=== PATIENT | male | born 2000 | race Hispanic/Latino ===

== ENCOUNTER 2023-08-23 19:33 | Emergency (ER) | payer BC, SELFPAY ==
[2023-08-23 19:35] VITALS: BP 110/59; PULSE 118; RESP 16; TEMP 36.7; O2SAT 91
--- NOTE | 2023-08-23 20:08 | ECG_ITS ---
Measurements Intervals [place] Rate: 120 P: 56 SC: 135 QRS: 117 QRSD: 138 T: -4 QT: 330 QTc: 468 Interpretive Statements SINUS TACHYCARDIA RIGHT BUNDLE BRANCH BLOCK LEFT POSTERIOR FASCICULAR BLOCK ABNORMAL ECG NO PREVIOUS ECG AVAILABLE FOR COMPARISON Electronically Signed On 08-23-2023 20:32:32 CDT by Giovanni Noriega D.O.
[2023-08-23 20:15] VITALS: BP 123/60; PULSE 118; RESP 18; TEMP 36.9; O2SAT 98
[2023-08-23 20:17] LABS: Hematocrit 51.3 % (42.0-52.0); Hemoglobin 17.2 g/dL (14.0-18.0); Mean Corpuscular HGB Conc 33.5 g/dl (32-36); Mean Corpuscular Hemoglobin 29.6 pg (26-34); Mean Corpuscular Volume 88.1 fl (80-100); Mean Platelet Volume 9.3 fl (7.4-10.4); Platelet Count Result 521 k/mm3 (150-375); Red Blood Count 5.82 M/mm3 (4.6-6.20); Red Cell Distribution Width 12.7 % (11.5-14.5); White Blood Count 32.7 K/mm3 (4.5-10.0)
[2023-08-23] MEDS: SODIUM CHLORIDE 0.9% IV 1,000 ML 999 ML IV CONT ×2 (20:18→21:18)
[2023-08-23] MEDS: ONDANSETRON INJ 4 MG/2 ML VIAL IV PUSH (20:18)
--- NOTE | 2023-08-23 20:27 | ED.NAVMDI ---
HPI - Nausea/Vomiting/Diarrhea General Chief complaint: Nausea/Vomiting/Diarrhea Stated complaint: vomiting/weakness Time Seen by Provider: 08/23/23 19:44 History of Present Illness HPI Narrative: 23-year-old male presenting with nausea and vomiting. Patient states that he was eating something with cashews around 3:00 p.m. when he developed an allergic reaction. States that he is allergic to tree nuts but he did not know that cashews are tree nuts. He called EMS who took his vitals and gave him IM Benadryl. He refuse transport to a hospital. He took a nap and when he woke up he vomited several times and felt itchy again so he called EMS again. They gave him Zofran which improved his nausea, states that he still feels itchy especially in his lower extremities. States that his throat feels a little bit tight. No pain, no shortness of breath, no further complaints. Related Data Allergies Allergy/AdvReac Type Severity Reaction Status Date / Time tree nut Allergy Unknown Swelling Verified 04/07/23 14:13 of Lip/Tongue/Throat Review of Systems Review of Systems: All systems reviewed & are unremarkable except as noted in HPI and below PMFSH Past Medical History Medical History Allergies Family History Family History Father Diabetes mellitus Hypertension Family history of cardiovascular disease Social History Social History Smoking status: Never smoker Alcohol intake: current Exam Narrative: GENERAL: Nontoxic, no acute distress HEAD: Normocephalic, atraumatic. EYES: PERRLA and EOMI. ENT: no posterior pharyngeal swelling, no tongue swelling, handling his secretions well NECK: Supple. CHEST: Clear to auscultation. No respiratory distress. no wheezing HEART: tachycardic, regular rhythm ABDOMEN: Soft, nontender, nondistended EXTREMITIES: Normal range of motion. No edema. SKIN: Warm, dry, no rash. NEURO: Alert and oriented x3. PSYCH: Normal mood and affect. Course Vital Signs Vital signs: Vital Signs Temperature 98.1 F 08/23/23 19:35 Pulse Rate 118 H 08/23/23 19:35 Respiratory Rate 16 08/23/23 19:35 Blood Pressure 110/59 L 08/23/23 19:35 Pulse Oximetry 91 08/23/23 19:35 Oxygen Delivery Room Air 08/23/23 19:35 Temperature 98.5 F 08/23/23 20:15 Pulse Rate 117 H 08/23/23 22:19 Respiratory Rate 15 08/23/23 22:19 Blood Pressure 100/59 L 08/23/23 22:19 Pulse Oximetry 96 08/23/23 22:19 Oxygen Delivery Room Air 08/23/23 19:35 MDM - Nausea/Vomiting/Diarrhea MDM Narrative Medical decision making narrative: 23-year-old male presenting with nausea and vomiting, itching in the setting of an allergic reaction earlier today. EKG per my interpretation shows sinus tachycardia, right bundle-branch block, no acute ischemic changes. Blood work with a white count of 32. Patient states that he has had numerous episodes of emesis, I suspect reactive leukocytosis at this time. He denies any infectious symptoms lately. Blood work is otherwise unremarkable. UA is not infected. Patient feels much better following IV medications and fluids. He is now tolerating p.o. intake. He feels comfortable going home. advised that he stay away from all tree nuts. Will send in for a Medrol Dosepak, Pepcid, EpiPen. States he has Benadryl at home. Advised close PCP follow-up. Strict return precautions given. Patient discharged in stable condition. Differential Diagnosis Differential diagnosis: Likely gastroenteritis, dehydration and other ( Allergic reaction) Medical Records Attestation: I reviewed the patient's medical records. Lab Data Attestation: I reviewed the patient's lab results. 08/23/23 20:02 08/23/23 20:02 Labs: Lab Results 08/23/23 08/23/23
[2023-08-23 20:35] LABS: Alanine Aminotransferase 59 U/L (6-50); Albumin Level 4.7 g/dL (3.5-5.1); Alkaline Phosphatase 113 U/L (38-126); Anion Gap 13 mmol/L (8-16); Aspartate Amino Transferase 47 U/L (17-59); Bilirubin,Total 0.9 mg/dL (0.2-1.3); Blood Urea Nitrogen 12 mg/dL (9-20); Calcium 9.8 mg/dL (8.4-10.2); Carbon Dioxide 23 mmol/L (22-30); Chloride 103 mmol/L (98-107); Estimated CRCL calculation 145 ml/min; Estimated Glomerular Filt Rate > 60; Glucose 157 mg/dL (65-110); Lipase 46 U/L (23-300); Potassium 3.9 mmol/L (3.4-5.0); Sodium 139 mmol/L (137-145)
[2023-08-23 20:40] LABS: Band Neutrophils Percent 9 % (0-6); Lymphocytes Absolute Manual 3.27 K/mm3 (1.1-4.5); Lymphocytes Percent Manual 10 % (18-44); Monocytes Absolute Manual 2.61 K/mm3 (0.1-0.90); Monocytes Percent Manual 8 % (3-9); Neutrophils Absolute Manual 26.81 K/mm3 (1.3-6.7); Neutrophils Percent Manual 73 % (46-73); Platelet Estimate Increased (Adequate); Total Cells Counted 100
[2023-08-23 20:41] LABS: Schistocytes None Seen
[2023-08-23] MEDS: FAMOTIDINE 20 MG/2 ML VIAL IV PUSH (20:41)
[2023-08-23] MEDS: methylPREDNISolone SOD SUCC 125 MG VIAL IV PUSH (20:41)
[2023-08-23] MEDS: diphenhydrAMINE HCl INJ 50 MG/ML VIAL 25 MG IV PUSH (20:41)
[2023-08-23 22:14] LABS: Appearance Urine Clear (Clear); Bacteria Urine None Seen /hpf; Bilirubin Urine 1+ (Negative); Blood Urine Negative (Negative); Color Urine Dark Yellow (Yellow); Glucose Urine UA Negative (Negative); Ketones Urine 2+ mg/dL (Negative); Leukocyte Esterase Ur Negative LEU/UL (Negative); Need Manual Microscopic Reviewed; Nitrate Urine Negative (Negative); Non Pathogenic Casts >20; Protein Urine 1+ mg/dL (Negative); RBC Urine 0-2 /hpf (0-2); Squamous Epithelial Cell Urine None Seen /hpf (Few); WBC Urine 0-5 /hpf (0-3); pH Urine 5.5 (5.0-9.0)
[2023-08-23 22:16] LABS: Add Urine Microscopic? YES; Specific Grav Ur 1.032 (1.001-1.035)
[2023-08-23 22:19] VITALS: BP 100/59; PULSE 117; RESP 15; O2SAT 96
[2023-08-23 22:25] LABS: Influenza A QL RT-PCR Negative (Negative); Influenza B QL RT-PCR Negative (Negative); RSV RNA, RT-PCR Negative (Negative); SARS-CoV-2 RNA PCR Negative (Negative)
== END 2023-08-23 22:58 | disposition home or self-care (01) ==
PROVIDERS: Emergency Medicine; Emergency Provider Emergency Medicine; PCP Internal Medicine
DX: T78.1XXA Other adverse food reactions, not elsewhere classified, initial encounter (principal); R11.2 Nausea with vomiting, unspecified; Z20.822 Contact with and (suspected) exposure to COVID-19; Z91.018 Allergy to other foods; R00.0 Tachycardia, unspecified; I45.2 Bifascicular block
CPT/HCPCS: 36415; 80053; 83690; 85025; 87637; 93005; 96361; 96374; 96375; 99284; J1200; J2405; J2930; J7030